=== PATIENT | male | born 1975 | race Caucasian/White ===

== ENCOUNTER 2020-06-16 20:45 | Emergency (ER) | payer MEDICAID ==
[~2020-06-16] VITALS: Ht 177.8 cm; Wt 70.3 kg
--- NOTE | 2020-06-16 21:10 | NUR ---
BROUGHT TO CT
[2020-06-16] MEDS ORDERED: ACETAMINOPHEN ES 500 MG TABLET ONE (21:28)
[2020-06-16] MEDS ORDERED: ACETAMINOPHEN 325 MG TABLET PO ONE (21:30)
--- NOTE | 2020-06-16 21:31 | NUR ---
BROUGHT BACK FROM CT. VSS.
[2020-06-16] MEDS ORDERED: TRAM50TA2 PO (21:44)
[2020-06-16] MEDS ORDERED: IBUP-1955 PO (21:44)
--- NOTE | 2020-06-16 21:55 | NUR ---
EMT AT BEDSIDE FOR R SHOULDER SLING
--- NOTE | 2020-06-16 21:57 | NUR ---
Patient discharged to home in stable condition. Written and verbal after care instructions given. Patient verbalizes understanding of instruction and RX. Pt told to follow up with [facility] within 24hrs. Pt ambulated out of ED. VSS.
[2020-06-16 21:58] VITALS: BP 141/89
== END 2020-06-16 22:01 | disposition home or self-care (01) ==
LOC: ER 20:45
DX: S42.031A Displaced fracture of lateral end of right clavicle, initial encounter for closed fracture (principal); S00.03XA Contusion of scalp, initial encounter; S09.8XXA Other specified injuries of head, initial encounter; M54.2 Cervicalgia; F17.200 Nicotine dependence, unspecified, uncomplicated; Z79.899 Other long term (current) drug therapy; V00.131A Fall from skateboard, initial encounter; Y93.51 Activity, roller skating (inline) and skateboarding; Y92.89 Other specified places as the place of occurrence of the external cause; Y99.8 Other external cause status
CPT/HCPCS: 70450-TC; 72125-TC; 73000-TC; 73030-TC